=== PATIENT | female | born 1985 ===

== ENCOUNTER 2016-11-29 14:45 | Outpatient (RCR) | payer OTHER | END 2016-12-12 | disposition home or self-care (01) | LOC: WSPT | DX: M54.5 Low back pain (principal) | CPT/HCPCS: G0283-GP ==

== ENCOUNTER 2017-02-12 15:00 | Outpatient (RCR) | payer OTHER | END 2017-03-13 | disposition home or self-care (01) | LOC: WSPT | DX: S32.000D Wedge compression fracture of unspecified lumbar vertebra, subsequent encounter for fracture with routine healing (principal) | CPT/HCPCS: G0283-GP ==

== ENCOUNTER 2017-06-06 16:45 | Outpatient (RCR) | payer OTHER | END 2017-06-12 | disposition still patient (30) | LOC: WSPT | DX: S22.080S Wedge compression fracture of T11-T12 vertebra, sequela (principal) | CPT/HCPCS: G0283-GP ==

== ENCOUNTER 2017-07-14 17:00 | Outpatient (RCR) | payer OTHER | END 2017-07-16 10:10 | disposition still patient (30) | LOC: WSPT 17:00 | DX: M54.5 Low back pain (principal); R29.3 Abnormal posture | CPT/HCPCS: G0283-GP ==